=== PATIENT | female | born 1940 | race Caucasian/White ===

== ENCOUNTER 2016-07-01 13:02 | Emergency (ER) | payer OTHER ==
[~2016-07-01] VITALS: Ht 157.5 cm; Wt 60.4 kg
[~2016-07-01 13:02] MED LIST: ADVAIR 250/501 DISK IH; ASPIRIN PO; CELEXA10 MG PO; CLONAZEPAM0.5 MG; DYAZIDE, MA1 CAPSULE PO; FISH OIL500 MG PO; FLEXERIL10 MG PO; IMITREX100 MG PO; KLONOPIN0.5 M1 PO; LOW DOSE ASPIRI81 M1 PO; OMEPRAZOLE40 M1 PO; OXECTA5 MG PO; PRAVACHOL40 MG; PRILOSEC OTC20 MG PO; SYNTHROID75 MCG PO; ULTRAM50 MG PO; VICODIN 5-3001 EACH PO
[2016-07-01 13:20] VITALS: BP 132/78
[2016-07-01] MEDS ORDERED: PRILOSEC20 MG PO (15:02)
[2016-07-01] MEDS ORDERED: NORCO 5/3251 TABLET PO (15:58)
[2016-07-01] MEDS ORDERED: MOTRIN600 MG PO (15:58)
[2016-07-01] MEDS ORDERED: LIDODERM 5% P1 PATCH TD (15:58)
[2016-07-01] MEDS ORDERED: VALIUM2 MG PO (15:58)
== END 2016-07-01 16:15 | disposition home or self-care (01) ==
LOC: EME 13:02
DX: M54.41 Lumbago with sciatica, right side (principal); S39.92XA Unspecified injury of lower back, initial encounter; X50.9XXA Other and unspecified overexertion or strenuous movements or postures, initial encounter
CPT/HCPCS: 72100; 73502; 99281; 99284; J7512

== ENCOUNTER 2016-08-01 13:47 | Emergency (ER) | payer OTHER ==
[~2016-08-01] VITALS: Ht 157.5 cm; Wt 61.4 kg
[~2016-08-01 13:47] MED LIST changes: +LIDODERM 5% P1 PATCH TD; +MOTRIN600 MG PO; +NORCO 5/3251 TABLET PO; +PRILOSEC20 MG PO; +VALIUM2 MG PO
[2016-08-01] MEDS ORDERED: KEFLEX500 MG PO (14:10)
[2016-08-01 14:55] VITALS: BP 135/67
== END 2016-08-01 14:56 | disposition home or self-care (01) ==
LOC: EME 13:47
DX: S61.200A Unspecified open wound of right index finger without damage to nail, initial encounter (principal); W26.9XXA Contact with unspecified sharp object(s), initial encounter
CPT/HCPCS: 99281; 99284

== ENCOUNTER 2017-01-04 14:20 | Emergency (ER) | payer OTHER ==
[~2017-01-04] VITALS: Ht 157.5 cm; Wt 59.0 kg
[~2017-01-04 14:20] MED LIST changes: +KEFLEX500 MG PO
[2017-01-04 15:28] LABS: HEMATOCRIT 42.8 % (36.0-46.0); MCH 31.3 PG (29.0-34.0); MCHC 33.4 G/DL (30.0-36.0); MCV 93.7 FL (83-99); RBC DIS.WIDTH-CV 13.3 % (11.8-14.6); RBC DIS.WIDTH-SD 45.7 % (39-53); RED BLOOD COUNT 4.57 M/uL (3.80-5.20); WHITE BLOOD COUNT 13.1 K/uL (4.1-10.2)
[2017-01-04 15:37] LABS: CHLORIDE 103 mEq/L (99-109); POTASSIUM 3.7 mEq/L (3.7-5.4); SODIUM 138 mEq/L (136-147)
[2017-01-04 15:39] LABS: GLUCOSE 99 mg/dL (70-99)
[2017-01-04 15:40] LABS: ANION GAP 9 MEQ/L (2-14)
[2017-01-04 15:42] LABS: GFR ESTIMATE (CALCULATED) > 59 mL/min/
[2017-01-04 15:43] LABS: UREA NITROGEN (BUN) 15 mg/dL (9-23)
[2017-01-04 18:45] LABS: MEAN PLAT.VOLUME 10.8 uM^3 (9.5-12.4); PLAT.SUFFICIENCY ADEQUATE; PLATELET CLUMPS PRESENT - PLATELET COUNT APPEARS ADQ.; PLATELET COUNT 230 K/uL (156-360)
[2017-01-04 19:19] LABS: ADD MIUA? YES; BILIRUBIN NEGATIVE; BLOOD NEGATIVE; COLOR YELLOW ((YELLOW)); GLUCOSE (STRIP) NEGATIVE; KETONES 20; LEUKOCYTES SMALL; NITRITE NEGATIVE; PROTEIN (STRIP) NEGATIVE; SPECIFIC GRAVITY 1.011 (1.000-1.030); UROBILINOGEN 0.2 MG/DL (0.2-1.0)
[2017-01-04 19:28] LABS: BACTERIA RARE /HPF; EPITHELIAL CELLS RARE /HPF; MUCUS TRACE /LPF; RED BLOOD CELLS 0-5 /HPF (0-5); UCUL ADDED? NO
[2017-01-04] MEDS ORDERED: MACROBID100 MG PO (22:08)
[2017-01-04 22:27] VITALS: BP 102/38
== END 2017-01-04 22:36 | disposition home or self-care (01) ==
LOC: EME 14:20
DX: N39.0 Urinary tract infection, site not specified (principal); Z91.81 History of falling; K21.9 Gastro-esophageal reflux disease without esophagitis; J45.909 Unspecified asthma, uncomplicated; I10 Essential (primary) hypertension; E78.5 Hyperlipidemia, unspecified; H81.09 Meniere's disease, unspecified ear; Z79.82 Long term (current) use of aspirin
CPT/HCPCS: 70450; 72131; 72192; 73502; 80048; 81003; 85027; 99281; 99285; J7030

== ENCOUNTER 2017-03-20 12:04 | Emergency (ER) | payer OTHER ==
[~2017-03-20] VITALS: Ht 157.5 cm; Wt 58.0 kg
[~2017-03-20 12:04] MED LIST changes: +MACROBID100 MG PO
[2017-03-20 13:01] VITALS: BP 118/59
== END 2017-03-20 13:02 | disposition home or self-care (01) ==
LOC: EME 12:04
DX: H11.31 Conjunctival hemorrhage, right eye (principal); I10 Essential (primary) hypertension
CPT/HCPCS: 99281; 99284

== ENCOUNTER 2017-09-30 11:19 | Emergency (ER) | payer OTHER ==
[~2017-09-30] VITALS: Ht 157.5 cm; Wt 60.2 kg
[2017-09-30 12:25] LABS: HEMATOCRIT 40.6 % (36.0-46.0); HEMOGLOBIN 14.2 G/DL (11.9-15.5); MCH 32.6 PG (29.0-34.0); MCV 93.3 FL (83-99); PLATELET COUNT 201 K/uL (156-360); RBC DIS.WIDTH-CV 12.9 % (11.8-14.6); RBC DIS.WIDTH-SD 44.7 % (39-53); RED BLOOD COUNT 4.35 M/uL (3.80-5.20)
[2017-09-30 12:34] LABS: CHLORIDE 105 mEq/L (99-109); POTASSIUM 3.8 mEq/L (3.7-5.4); SODIUM 141 mEq/L (136-147)
[2017-09-30 12:36] LABS: GLUCOSE 90 mg/dL (70-99)
[2017-09-30 12:40] LABS: CREATININE 0.9 mg/dL (0.6-1.3); GFR ESTIMATE (CALCULATED) > 59 mL/min/
[2017-09-30 12:45] LABS: UREA NITROGEN (BUN) 16 mg/dL (9-23)
[2017-09-30 13:09] LABS: TROP-I INTERPRETATION NEGATIVE; TROPONIN-I < 0.01 ng/mL (0.0-0.30)
[2017-09-30] MEDS ORDERED: LASIX20 MG PO (15:48)
[2017-09-30 15:57] VITALS: BP 118/72
== END 2017-09-30 16:03 | disposition home or self-care (01) ==
LOC: EME 11:19
DX: R06.00 Dyspnea, unspecified (principal); R05 Cough; J81.1 Chronic pulmonary edema; R00.1 Bradycardia, unspecified; I10 Essential (primary) hypertension; K21.9 Gastro-esophageal reflux disease without esophagitis; E78.5 Hyperlipidemia, unspecified; J45.909 Unspecified asthma, uncomplicated; J18.9 Pneumonia, unspecified organism; H81.09 Meniere's disease, unspecified ear; F41.9 Anxiety disorder, unspecified; F32.9 Major depressive disorder, single episode, unspecified; Z79.82 Long term (current) use of aspirin; Z79.51 Long term (current) use of inhaled steroids; Z87.891 Personal history of nicotine dependence
CPT/HCPCS: 71046; 71275; 80048; 84484; 85027; 93005; 99281; 99284; J7030